=== PATIENT | male | born 1960 | race Caucasian/White ===

== ENCOUNTER → 2016-04-24 | Day surgery (SDC) | payer OTHER ==
[~2016-04-24] VITALS: Ht 190.5 cm; Wt 108.9 kg
[~2016-04-24] MED LIST: ALLOPURINOL300 M1 ORAL; Depo-Medrol 80mg Vial IARTIC ONE; NKM
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
--- NOTE | 2016-04-24 09:01 | Pre-Procedure Note/Attestation ---
Pre-Procedure Note/Attestation Complete Prior to Procedure Planned Procedure: left Procedure Narrative: L4-5 and L5-S1 intra articular facet injections under fluoroscopic guidance. Indications for Procedure Pre-Operative Diagnosis: lumbosacral spondylosis Attestation I attest that I discussed the nature of the procedure; its benefits; risks and complications; and alternatives (and the risks and benefits of such alternatives ), prior to the procedure, with the patient (or the patient's legal marketing sales representative). I attest that, if there was a reasonable possibility of needing a blood transfusion, the patient (or the patient's legal marketing sales representative) was given the [facility] standardized written summary, pursuant to the Chriss Pinnacle Blood Safety Act ([place] Health and Safety Code # 1645, as amended). I attest that I re-evaluated the patient just prior to the surgery and that there has been no change in the patient's H&P, except as documented below: GARY GARCIA M.D. Apr 24, 2016 09:01
[2016-04-24 09:13] VITALS: BP 127/69
[2016-04-24 10:04] VITALS: BP 121/75
--- NOTE | 2016-04-24 10:19 | Brief Operative Note ---
Immediate Post Operative Note Operative Note Chief Complaint: Right lower back pain Pre-op Diagnosis: lumbosacral spondylosis Procedure: right L4-L5 and L5-S1 intra articular facet injections under fluoroscopic guidance. Post-op Diagnosis: lumbosacral spondylosis Post-op Diagnosis: same as pre-op Findings: consistent w/pre-op dx studies Surgeon: Gary Garcia MD Patient Admitting Clerk: none Additional Surgeons: none Anesthesiologist: none Anesthesia: local Specimen: none Complications: none Condition: stable Fluids: none Estimated Blood Loss: none Drains: none Packing: none Tourniquet time: 0 Implant(s) used?: No GARY GARCIA M.D. Apr 24, 2016 10:19
--- NOTE | 2016-04-24 10:24 | Discharge Summary ---
Discharge Summary Hospital Course Date of Admission 04/24/2016 Date of Discharge 04/24/2016 Admitting Diagnosis lumbosacral spondylosis Reason for Hospitalization: short stay for an injection. HPI Duc Shipley is a 56 year old male who was admitted on for Lumbosacral Spondylosis Consultations none Procedures Right L4-5 and L5-S1 intra articular facet injections Hospital Course short stay Discharge Condition Upon Discharge: stable Discharge Disposition Patient was discharged to home. Discharge Diagnoses: (1) Lumbosacral spondylosis with radiculopathy Discharge Instructions Discharge Instructions Follow up with: Dr. Garcia Diet: regular Activity: light activity, as tolerated, okay to shower Follow Up Orders Follow up on May 08 at 11:00 am May Return to Work/School On: Apr 25, 2016 For Surgical Patients Dressing Care: may change May shower: Yes Contact your physician for: bleeding, pain, tenderness, redness, swelling, yellowish discharge in the op. site GARY GARCIA M.D. Apr 24, 2016 10:23
--- NOTE | 2016-04-24 10:36 | Pre-Procedure Note/Attestation ---
Pre-Procedure Note/Attestation Complete Prior to Procedure Planned Procedure: right Procedure Narrative: Right L4-L5 and L5-S1 intra articular facet injections under fluoroscopic guidance. Indications for Procedure Pre-Operative Diagnosis: lumbosacral spondylosis Attestation I attest that I discussed the nature of the procedure; its benefits; risks and complications; and alternatives (and the risks and benefits of such alternatives ), prior to the procedure, with the patient (or the patient's legal small business sales representative). I attest that, if there was a reasonable possibility of needing a blood transfusion, the patient (or the patient's legal small business sales representative) was given the [facility] standardized written summary, pursuant to the Chriss Demarco Blood Safety Act ([place] Health and Safety Code # 1645, as amended). I attest that I re-evaluated the patient just prior to the surgery and that there has been no change in the patient's H&P, except as documented below: GARY GARCIA M.D. Apr 24, 2016 10:36
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
== END | disposition home or self-care (01) ==
LOC: SUR 08:38
DX: M47.817 Spondylosis without myelopathy or radiculopathy, lumbosacral region (principal); M19.90 Unspecified osteoarthritis, unspecified site
CPT/HCPCS: 64493; 64494; 82962; J1040; Q9967; 64483; 64484